=== PATIENT | female | born 1980 | race Caucasian/White ===

== ENCOUNTER 2021-09-10 18:55 | Emergency (ER) | payer OTHER, SELFPAY ==
--- NOTE | ~2021-09-10 | CT_ITS ---
EXAMINATION: CTA chest PE protocol DATE: 09/10/2021 22:19 INDICATION: eval for PE, tachycardia, SOB TECHNIQUE: Computed tomography angiography (CTA) of the chest was performed with 100 mL Omnipaque-350 intravenous contrast timed to evaluate the pulmonary arteries. Coronal maximum intensity projection 3D-reconstructions were created by the technologist. The dose-length product (DLP) was 214.34 mGy-cm. Automated exposure control and iterative reconstruction technique were employed. COMPARISON: X-ray chest, same date. FINDINGS: Study quality: Adequate. Pulmonary arteries: No pulmonary emboli detected. Thoracic aorta: Normal. Lung parenchyma and airways: Clear. Thoracic inlet, axillae and chest wall: Unremarkable. Mediastinum: Normal. Heart and pericardium: Normal. Coronary artery calcifications: . Pleura: Unremarkable. Upper abdomen: No significant finding. Bones: No acute osseous finding. IMPRESSION: No CT evidence of acute pulmonary embolus. No acute intrathoracic process. Reviewed, dictated and finalized at location K.
--- NOTE | ~2021-09-10 | XR_ITS ---
EXAMINATION: XR chest 2V Exam Date/Time: 09/10/2021 20:45 CDT CLINICAL HISTORY: int CP, leg swelling bilat, FEVER, SOB Comparison: None available. RESULT: Lines, tubes, and devices: None. Lungs and pleura: Clear. Cardiomediastinal silhouette: Stable cardiomediastinal silhouette. Other: No acute osseous or upper abdominal finding. IMPRESSION: No acute cardiopulmonary process Reviewed, dictated and finalized at location K.
--- NOTE | ~2021-09-10 | CT_ITS ---
EXAMINATION: CT abdomen pelvis w con EXAM DATE: 09/11/2021 00:36 INDICATION: Abdominal pain. TECHNIQUE: Spiral CT of the abdomen and pelvis was performed following intravenous injection of 100 m L Omnipaque 350. Axial, coronal and sagittal images of the abdomen and pelvis were reviewed. The do se-length product (DLP) for this examination was 397.80 mGy-cm. The exposure was tailored according to patient size (auto mA exposure control), and iterative reconstruction (ASIR) was used as additiona l dose reduction technique. There is no prior study for comparison. FINDINGS: The liver, spleen, adrenal glands and pancreas are unremarkable. Gallbladder is unremarkab le. No biliary obstruction. Portal and splenic veins are patent. Kidneys enhance symmetrically. T here is no hydronephrosis. The uterus is anteverted and morphologically normal. The bladder is un remarkable. There is no retroperitoneal or pelvic lymphadenopathy. The appendix is normal. The stomach and small bowel are unremarkable. There is expected amount of c olonic stool. No free intraperitoneal gas. The heart is normal in size. There are no pericardial or pleural effusions. There is right basilar 4 mm nodule likely postinfectious. There are no osteo blastic or osteolytic lesions identified. IMPRESSION: 1. No acute intra-abdominal findings. Reviewed, dictated and finalized at location A.
[2021-09-10 18:58] VITALS: BP 132/80; PULSE 141; RESP 19; TEMP 36.6; O2SAT 100
--- NOTE | 2021-09-10 19:07 | ECG_ITS ---
Measurements Intervals [place] Rate: 132 P: 55 CT: 140 QRS: 62 QRSD: 81 T: 27 QT: 294 QTc: 436 Interpretive Statements SINUS TACHYCARDIA ABNORMAL RHYTHM ECG NO PREVIOUS ECG AVAILABLE FOR COMPARISON Electronically Signed On 09-11-2021 11:43:48 CDT by Mauro Pacheco M.D.
--- NOTE | 2021-09-10 19:16 | PC.NURSE ---
Per [facility] EDP Dr Priest, give pt 1000mg Tylenol PO for fever.
[2021-09-10] MEDS: ACETAMINOPHEN 500 MG TABLET 1000 MG PO (19:20)
[2021-09-10 20:33] VITALS: TEMP 37.9
[2021-09-10 20:37] VITALS: BP 126/65; PULSE 126; RESP 18; O2SAT 98
[2021-09-10 20:50] LABS: Basophils Absolute Auto 0.1 K/mm3 (0.0-0.1); Basophils Percent Auto 0.5 % (0.2-1.2); Hematocrit 34.9 % (37.0-47.0); Hemoglobin 11.7 g/dL (12.0-15.0); Immature Granulocyte Absolute 0.16 K/mm3 (0.00-0.031); Immature Granulocyte Percent A 0.7 % (0-0.5); Lymphocytes Absolute Auto 1.38 K/mm3 (0.9-3.2); Lymphocytes Percent Auto 5.9 % (18.3-44.2); Mean Corpuscular HGB Conc 33.5 g/dl (32-36); Mean Corpuscular Hemoglobin 30.8 pg (26-34); Mean Corpuscular Volume 91.8 fl (80-100); Mean Platelet Volume 9.5 fl (7.4-10.4); Monocytes Absolute Auto 1.5 K/mm3 (0.1-0.6); Monocytes Percent Auto 6.3 % (2.6-8.5); Neutrophils Absolute Auto 20.4 K/mm3 (1.3-6.7); Neutrophils Percent Auto 86.6 % (45.5-73.1); Platelet Count Result 449 k/mm3 (150-375); Red Cell Distribution Width 13.7 % (11.5-14.5); White Blood Count 23.5 K/mm3 (4.5-10.0)
[2021-09-10 20:51] LABS: Appearance Urine Clear (Clear); Bilirubin Urine Negative (Negative); Color Urine Yellow (Yellow); Glucose Urine UA Negative (Negative); Ketones Urine Negative (Negative); Leukocyte Esterase Ur Negative LEU/UL (Negative); Nitrate Urine Negative (Negative); Protein Urine Negative (Negative); Specific Grav Ur 1.015 (1.001-1.035); Urobilinogen Urine 0.2 mg/dL (<2.0)
[2021-09-10 20:58] LABS: Add Urine Microscopic? YES; Blood Urine Trace-Intact (Negative)
[2021-09-10 20:59] LABS: Alanine Aminotransferase 10 U/L (4-35); Albumin Level 4.5 g/dL (3.5-5.1); Alkaline Phosphatase 82 U/L (38-126); Anion Gap 7 mmol/L (8-16); Aspartate Amino Transferase 23 U/L (14-36); Bilirubin,Total 0.4 mg/dL (0.2-1.3); Blood Urea Nitrogen 16 mg/dL (7-17); Calcium 8.7 mg/dL (8.4-10.2); Carbon Dioxide 22 mmol/L (22-30); Chloride 104 mmol/L (98-107); Estimated CRCL calculation 76 ml/min; Estimated Glomerular Filt Rate > 60; Glucose 111 mg/dL (65-110); Potassium 3.8 mmol/L (3.4-5.0); RBC Urine 0-2 /hpf (0-2); Sodium 133 mmol/L (137-145); Squamous Epithelial Cell Urine Occasional /hpf (Few); WBC Urine 0-3 /hpf
[2021-09-10 21:00] LABS: INR 1.1; Prothrombin Time 14.1 Seconds (11.1-14.7)
[2021-09-10 21:01] LABS: Partial Thromboplastin Time 30.6 SECONDS (22.3-36.8)
[2021-09-10 21:11] LABS: NT Pro B Type Natriuretic Pept 30 pg/mL (5-100); Troponin I < 0.012 ng/mL (0.000-0.034)
[2021-09-10] MEDS: SODIUM CHLORIDE 0.9% IV 500 ML 999 ML IV CONT (22:04)
[2021-09-10 22:12] LABS: CRP 2.8 mg/dL (<1.0)
[2021-09-10 22:25] LABS: Erythrocyte Sedimentation Rate 34 mm/hr (0-20)
--- NOTE | 2021-09-10 22:28 | ED.GENADULT ---
HPI - General Adult General Chief complaint: Recheck/Abnormal Lab/Rx Stated complaint: elevated blood pressure, edema in LEs Time Seen by Provider: 09/10/21 20:59 Source: patient, family and RN notes reviewed Limitations: no limitations History of Present Illness HPI narrative: 41-year-old female with history of preeclampsia presented to the emergency department for evaluation of hypertension tachycardia and generalized fatigue and lower extremity edema. Patient states over the last few months she has had very heavy periods and has had follow-up with Dr. Jacob for this. Patient was started on oral control and states that this has helped a little but is still reporting very heavy periods patient's last menstrual period finished on Thursday. Patient states that she has had worsening generalized weakness and fatigue over the last month. Patient did have a low-grade fever today. Patient checked her blood pressure at home and was found to have a systolic of greater than 200. Patient has also had worsening lower extremity edema intermittently. Patient did report some lower abdominal pain/tenderness earlier today when she was at the gym. Patient does not take any medications for her blood pressure. Related Data Home Medications Medication Instructions Recorded Confirmed norgestimate-ethinyl estradiol tablet 09/10/21 [Tri-Linyah] Allergies Allergy/AdvReac Type Severity Reaction Status Date / Time Quinolones Allergy Severe Hives Verified 09/10/21 19:21 Sulfa (Sulfonamide Allergy Unknown Hives Verified 09/10/21 19:21 Antibiotics) sulfanilamide Allergy Unknown Hives Verified 09/10/21 19:21 Review of Systems Review of Systems: CONSTITUTIONAL: Low-grade fever and fatigue EYES: Denies visual changes, redness, or discharge. ENT: Denies rhinorrhea, congestion, sore throat, or otalgia. CARDIOVASCULAR: Denies chest pain, palpitations, or edema. RESPIRATORY: Denies cough or dyspnea. GASTROINTESTINAL: Lower abdominal tenderness GENITOURINARY: See HPI, no current vaginal bleeding SKIN: Denies rash or itching. Or cellulitis. MUSCULOSKELETAL: Lower extremity edema intermittently, none currently NEUROLOGIC: Denies headache, numbness, or weakness. No neck pain or back pain PSYCHIATRIC: Denies anxiety or depression. [facility] Family History Family History Grandparent Family history of malignant neoplasm of breast Social History Social History Alcohol intake: never Exam Narrative: APPEARANCE: Well appearing, no pain, no distress, well-nourished. HEAD: normocephalic, atraumatic. EYES: PERRLA/EOMI, conjunctivae clear. NOSE: Normal no drainage NECK: Supple. No adenopathy, no masses. No limited range of motion of neck. No pain with neck movement RESPIRATORY: Airway patent, respirations nonlabored. Clear to auscultation bilaterally, no rales, rhonchi, wheezing. CARDIOVASCULAR: Sinus tachycardia ABDOMINAL: Small amount of lower abdominal tenderness to palpation, benign abdomen. No peritonitis MUSCULOSKELETAL: Moves all extremities. No edema or calf tenderness NEURO: Alert. Cranial nerves II through XII intact. Grossly intact SKIN: Warm, dry. Normal Color. No cellulitis Course Course Emergency Course: Patient did have tachycardia upon arrival to the emergency department. Tachycardia did improve with rehydration. Leukocytosis of 23.5. CRP elevated 2.8. ESR elevated at 34. COVID and influenza were negative. CT was negative for pulm embolism. Due to her abdominal pain CT scan of abdomen and pelvis was ordered and only showed a small amount of free fluid. COVID and influenza were negative. Blood cultures pending. Reevaluation(s) Reevaluation #1: Patient was updated on the results of her labs so far and the reason for obtaining the abdominal CT. Patient does feel improved and is resting comfortably at this time. Re
[2021-09-10 22:57] LABS: Influenza A QL RT-PCR Negative (Negative); Influenza B QL RT-PCR Negative (Negative); SARS-CoV-2 RNA PCR Negative
[2021-09-11 00:01] LABS: Amphetamine Screen Urine Negative (Negative); Barbiturate Screen Urine Negative (Negative); Benzodiazepines Screen Urine Negative (Negative); Cannabinoid Screen Urine Negative (Negative); Cocaine Screen Urine Negative (Negative); Methadone Screen Urine Negative (Negative); Opiate Screen Urine Negative (Negative); Phencyclidine Screen Urine Negative (Negative)
[2021-09-11] MEDS: SODIUM CHLORIDE 0.9% IV 1,000 ML 999 ML IV CONT (00:43)
[2021-09-11] MEDS: KETOROLAC 15 MG/ML VIAL (*BKC) IV PUSH (01:53)
[2021-09-11 01:55] VITALS: PULSE 116; RESP 20; TEMP 39; O2SAT 100
[2021-09-11 02:16] LABS: Lactic Acid Reflex 0.5 mmol/L (0.7-2.1)
[2021-09-11 02:35] VITALS: BP 106/73; PULSE 111; RESP 18; TEMP 37.5; O2SAT 96
== END 2021-09-11 02:38 | disposition home or self-care (01) ==
PROVIDERS: Emergency Provider Emergency Medicine
DX: R00.0 Tachycardia, unspecified (principal); R50.9 Fever, unspecified; D72.829 Elevated white blood cell count, unspecified; Z20.822 Contact with and (suspected) exposure to COVID-19
CPT/HCPCS: 36415; 71046; 71275; 74177; 80053; 80307; 81001; 81025; 83605; 83880; 84484; 85025; 85610; 85652; 85730; 86140; 87040; 87502; 93005; 96361; 96365; 96375; 99284; A9270; C9803; J0131; J1885; J7030; J7040; Q9967; U0003; U0005

== ENCOUNTER 2024-04-07 18:24 | Emergency (ER) | payer OTHER, SELFPAY ==
--- NOTE | 2024-04-07 18:41 | ED.URI ---
HPI - URI/Sore Throat General Chief Complaint: Upper Respiratory Infection Stated Complaint: Sore Throat Time Seen by Provider: 04/07/24 18:42 Source: patient Mode of arrival: ambulatory Limitations: no limitations History of Present Illness HPI Narrative: Claudia is a 43-year-old female patient presenting to the clinic today with complaints of sore throat that just started this morning. She reports she has been exposed to strep. States her daughter has strep and some of the girls on the basketball team also have strep. Denies any fever, chills, body aches. Does have slight cough nasal congestion MD elicited complaint: sore throat and nasal congestion Related Data Home Medications Medication Instructions Recorded Confirmed norgestimate-ethinyl estradiol tablet 09/10/21 0.18 mg/0.215mg/0.25mg-35 mcg(28)tablet (Tri-Linyah) Allergies Allergy/AdvReac Type Severity Reaction Status Date / Time Quinolones Allergy Severe Hives Verified 09/10/21 19:21 Sulfa (Sulfonamide Allergy Unknown Hives Verified 09/10/21 19:21 Antibiotics) sulfanilamide Allergy Unknown Hives Verified 09/10/21 19:21 Review of Systems Review of Systems: Pertinent positives per HPI. Patient denies any fever, chills, rash, headache, visual changes, dizziness, shortness of breath, chest pain, palpitations, nausea, vomiting, diarrhea, constipation, abdominal pain, or any urinary issues. [facility] Family History Family History Grandparent Family history of malignant neoplasm of breast Social History Social History Alcohol intake: never Comments At the time of my signature, I reviewed and agree with the nursing past medical, surgical, social, and family history. There is no relevant family history pertinent to the patient complaint. Exam Narrative: General: Well-developed, well nourished, in no apparent distress Head: Normocephalic, atraumatic Eyes: Pupils equally round and reactive to light bilaterally, EOM intact, sclera and conjunctive clear, no discharge, lids normal Ears: TMs intact and clear, ear canals clear, no drainage, grossly hearing normal. Nose: Nares patent, clear nasal discharge, no inflammation, no sinus tenderness. Mouth: Oral pharynx red without lesions or masses, good dentition, MMM. Neck: Supple, trachea midline, no enlargement of anterior or posterior cervical nodes, no thyroid masses or goiter palpable. Cardio: Regular rate and rhythm, s1 and s2 normal, no murmur appreciated. Resp: Clear to auscultation bilaterally, no rhonchi, rales, wheezing or rubs Course Course Emergency Course: Portions of this record may have been created with voice recognition software. Level of Care: Express Care Visit Vital Signs Vital signs: Vital signs reviewed MDM - URI/Sore Throat MDM Narrative Medical decision making narrative: At the time of visit patient is resting comfortably on the exam table. Patient appears to be nontoxic. Labs: Strep test was negative in the clinic today. We will send strep for culture if this comes back positive we will contact him place you on antibiotics at that time. Plan: I suspect patient has URI/pharyngitis. Supportive measures were discussed with the patient and they voiced understanding discharge instructions and agrees to treatment plan. Return precautions reviewed Differential Diagnosis Differential diagnosis: Likely upper respiratory infection, otitis media, sinusitis, viral infection, bronchitis, influenza, pharyngitis and other (COVID) Discharge Plan Discharge Clinical Impression: Upper respiratory infection, Pharyngitis Patient Disposition: Home, Self-Care Condition: Stable Instructions: Antibiotic Form, Pharyngitis (ED), Cold Symptoms (ED) Additional Instructions: Strep test was negative in the clinic today. We will send strep for culture if this comes back positive we will contact him place you on antibiotics at that time. Increase fluids and stay well hydrated Tylenol/motrin for pain/fever Flonase and OTC antihistamines as directed Vicks vapor rub to open sinuses Sinus rinses for congestion Cepacol spray, cough drops, throat lozenges, warm tea with honey/lemon, gargle salt water to soothe throat BRAT diet for diarrhea Clear liquids x 24 hours then advance as tolerated for nausea/vomiting Go to the ED if you develop a worsening in your condition- high fever not controlled by Tylenol or Motrin, dehydration, weakness, lethargy, shortness of breath, or chest pain. Follow up with your PCP in 3-5 days if symptoms persist. Prescriptions: No Action norgestimate-ethinyl estradiol [Tri-Linyah] 0.18/0.215/0.25 mg-35 mcg (28) tablet Follow-up/Referrals: PHYSICIAN,MILL OPERATOR HELPER [Primary Care Provider] - Time of Disposition: 18:58 Quality NIHSS Nursing Documentation ED NIHSS nursing documentation: reviewed/agree
[2024-04-07 18:45] VITALS: BP 107/71; PULSE 86; RESP 16; TEMP 36.3; O2SAT 100
[2024-04-07 18:59] LABS: EDSTREPNEGPOS1 Negative (Negative)
== END 2024-04-07 19:05 | disposition home or self-care (01) ==
PROVIDERS: Emergency Provider Nurse Practitioner Family
DX: J06.9 Acute upper respiratory infection, unspecified (principal)
CPT/HCPCS: 87081; 87880; 99213; G0463